=== PATIENT | female | born 1990 | race Caucasian/White ===

== ENCOUNTER 2016-09-12 20:42 | Emergency (ER) | payer OTHER ==
[~2016-09-12] VITALS: Ht 167.6 cm; Wt 132.5 kg
[2016-09-12 20:53] VITALS: Ht 167.6 cm; Wt 132.5 kg
[2016-09-12] MEDS ORDERED: CEPH-443 PO (21:52)
[2016-09-12] MEDS ORDERED: MUPI22OI2 TOP (21:53)
[2016-09-12] MEDS ORDERED: CAMP85GE TP (21:54)
[2016-09-12] MEDS ORDERED: BEN25 PO (21:54)
[2016-09-12] MEDS ORDERED: DIPHTH/TET/ACEL PERTUSS (ADULT) 0.5 ML VIAL IM* ONE (22:00)
--- NOTE | 2016-09-12 22:00 | ERD ---
ER Documentation Chief Complaint Date/Time DATE: 09/12/16 TIME: 21:54 Chief Complaint Pt with sweeling and erythema to L leg X 2 days after insect bite. HPI Patient is a 26-year-old female presents to the emergency department with swelling and erythema to her left lower leg after being bit by an insect. Patient states that the redness has been growing in size of the last few days. Patient states there is slightly warm. Patient denies any active discharge or bleeding from the site. Patient denies any fever, chills, nausea, vomiting, pain or loss of consciousness. Patient denies any chest pain, chest tightness, shortness of breath, tongue swelling, lip swelling, throat closing. Patient does not recall her last tetanus vaccination. Patient denies any new products, creams, lotions, environments, medications or foods. ROS All systems reviewed and are negative except as per history of present illness. Medications Home Meds Active Scripts Diphenhydramine Hcl* (Benadryl*) 25 Mg Cap, 25 MG PO Q6, #30 CAP Prov:JEANNE GROSS-John 09/12/16 Camphor (Benadryl Anti-Itch) 85 Gm Gel..gm., 85 GM TP TID, #1 TUB Prov:JEANNE GROSS-John 09/12/16 Mupirocin* (Bactroban*) 2% -22 Gram Oint...g., 1 APPLIC TOP BID for 7 Days, EA Prov:JEANNE GROSS-C 09/12/16 Cephalexin* (Keflex*) 500 Mg Capsule, 500 MG PO QID for 7 Days, CAP Prov:JEANNE GROSS-John 09/12/16 Allergies Allergies: Uncoded Allergies: NKDA (Allergy, Unknown, 12/20/13) PMhx/Soc Medical and Surgical Hx: pt denies Medical Hx, pt denies Surgical Hx History of Surgery: No Anesthesia Reaction: No Hx Neurological Disorder: No Hx Respiratory Disorders: No Hx Cardiac Disorders: No Hx Psychiatric Problems: No Hx Miscellaneous Medical Probl: Yes (HEMORRHOIDS) Hx Alcohol Use: No Hx Substance Use: No Hx Tobacco Use: No Smoking Status: Never smoker Physical Exam Vitals Vital Signs Date Time Temp Pulse Resp B/P Pulse Ox O2 Delivery O2 Flow Rate FiO2 09/12/16 20:53 98.6 64 18 139/64 100 Physical Exam GENERAL: Well-developed, well-nourished female. Appears in no acute distress. Speaking in full sentences HEAD: Normocephalic, atraumatic. EYES: Pupils are equally reactive bilaterally. EOMs grossly intact. No conjunctival erythema. ENT: Moist mucous membranes. No uvula deviation. No kissing tonsils. No tongue swelling, No throat swelling. No lip swelling. NECK: Supple. No meningismus. Normal range of motion of the neck. LUNG: Clear to auscultation bilaterally. No rhonchi, wheezing, rales or coarse breath sounds. HEART: Regular rate and rhythm. No murmurs, rubs or gallops. BACK: No midline tenderness. EXTREMITIES: Equal pulses bilaterally. No peripheral clubbing, cyanosis or edema. No unilateral leg swelling. NEUROLOGIC: Alert and oriented. Moving all four extremities without any difficulty. Normal speech. Steady gait. SKIN: Normal color. Warm and dry. No rashes or lesions. 2 cm circular punctate lesion with significant surrounding erythema noted on the patient's calf. Minimal warmth. Minimal swelling. No active bleeding. No active discharge. No lymphatic streaking. No induration. No fluctuance. Results 24 hrs Current Medications Medications (Trade) Dose Ordered Sig/Eli Route PRN Reason Start Time Stop Time Status Last Admin Dose Admin Diphtheria/ Tetanus/Acell Pertussis (Adacel) 0.5 ml ONCE ONCE IM* 09/12/16 22:00 09/12/16 22:01 DC 09/12/16 22:04 Procedures/MDM MEDICAL DECISION MAKING: This is a 26-year-old female who presents with concerns of insect bite to her left lower leg which occurred 2 days ago. Vital signs were reviewed. Patient was afebrile. Patient was not hypoxic. Patient was speaking in full sentences. Patient denies any chest tightness, shortness of breath, lip swelling, tongue swelling, throat swelling. Patient did not recall her last tetanus vaccination. Patient was given Tdap here in the ED today. Given these findings, the patient's presentation is most consistent with insect bite. Low suspicion for infection at this time, however given the significant erythema surrounding the patient's bite wound, I will treat the patient with the course of antibiotics to prevent infection. I have a much lower clinical concern for necrotizing fasciitis, sepsis, gangrene, Nate-Zechariah syndrome, toxic epidural necrolysis, deep space infection, abscess, cellulitis, herpes zoster, anaphylaxis, angioedema, fungal infection, impetigo. PRESCRIPTIONS: Benadryl, Keflex, mupirocin, topical Benadryl DISCHARGE: At this time, patient is stable for discharge and outpatient management. I have advised the patient to avoid any new products, creams or possible allergens. I have advised the patient to avoid scratching the lesions. I have instructed the patient to follow-up with his/her primary care physician in 1-2 days. If symptoms persist, patient may need to see a blunger loader for further examinations and testing. I have instructed the patient to promptly return to the ER at any time for any new or worsening symptoms including increased pain, fever, redness, swelling, warmth, difficulty breathing or vomiting. The patient and/or family expressed understanding of and agreement with this plan. All questions were answered. Home care instructions were provided. Departure Diagnosis: Primary Impression: Insect bite Encounter type: initial encounter Qualified Code: W57.XXXA - Insect bite, initial encounter Condition: Stable Patient Instructions: Insect Sting/Bite, Infected Referrals: GEORGE DOW MD,BAHMAN REYNOSO MD,MAXIMILIANO DONATO MD Additional Instructions: Patient advised to return to the emergency department for any new or worsening symptoms including but not limited to, spreading of redness, fevers, chills, increased swelling, increased warmth or loss of consciousness. Patient was advised to start antibiotics to complete the full course. Call your primary care doctor TOMORROW for an appointment during the next 1-2 days.See the doctor sooner or return here if your condition worsens before your appointment time. JEANNE GROSS PA-C Sep 12, 2016 21:59 JEANNE GROSS PA-C Sep 12, 2016 21:59
== END 2016-09-12 22:15 | disposition home or self-care (01) ==
LOC: FTE 20:42
DX: S80.862A Insect bite (nonvenomous), left lower leg, initial encounter (principal); E66.01 Morbid (severe) obesity due to excess calories; W57.XXXA Bitten or stung by nonvenomous insect and other nonvenomous arthropods, initial encounter; Y92.9 Unspecified place or not applicable; Z68.42 Body mass index [BMI] 45.0-49.9, adult; Z23 Encounter for immunization
CPT/HCPCS: 90471; 90715; Z7502